=== PATIENT | male | born 1995 | race Two or more races ===

== ENCOUNTER 2023-08-09 08:44 | Emergency (ER) | payer OTHER ==
[~2023-08-09] VITALS: Ht 185.4 cm; Wt 99.8 kg
[2023-08-09 10:52] LABS: HEMATOCRIT 41.7 % (39.0-48.0); HEMOGLOBIN 14.2 g/dL (13-16.00); MEAN CELL VOLUME 83.1 fL (80.0-100.00); MEAN CORPUSCULAR HEMOGLOBIN 28.3 pg (27.00-32.0); MEAN CORPUSCULAR HGB CONC 34.1 g/dl (32.0-36.0); PLATELET COUNT 259 K/uL (150-450); RED BLOOD COUNT 5.01 M/uL (4.00-6.00); RED CELL DISTRIBUTION WIDTH 13.3 % (11.5-14.5)
[2023-08-09 11:19] LABS: CALCIUM 9.3 mg/dL (8.5-10.1); CREATININE SERUM 1.11 mg/dL (0.70-1.30); GFR 77.78; POTASSIUM 3.96 mEq/L (3.5-5.1)
[2023-08-09 13:37] LABS: PH,URINE 6.5 (5.0-8.0); URINE APPEARANCE Clear; URINE BILIRRUBIN Negative (NEGATIVE); URINE BLOOD Negative; URINE COLOR Yellow; URINE GLUCOSE Negative (NEGATIVE); URINE LEUKOCYTE Negative; URINE NITRATE Negative; URINE PROTEIN Trace (NEGATIVE); URINE UROBILINOGEN 0.2 E.U./dl
[2023-08-09 13:40] LABS: URINE BACTERIA 535.4 uL (0.0-1933); URINE EPITHELIAL CELLS 40.6 uL (0.0-38.8); URINE WBC 38.6 uL (0.0-23.2)
[2023-08-09 13:50] LABS: URINE MUCUS MODERATE; URINE RBC 1.1 uL (0.0-20.8)
== END 2023-08-09 16:46 | disposition home or self-care (01) ==
LOC: ER 08:45
PROVIDERS: General Practice
DX: R19.7 Diarrhea, unspecified (principal); E86.0 Dehydration; Z91.048 Other nonmedicinal substance allergy status